=== PATIENT | female | born 1950 | race Caucasian/White ===

== ENCOUNTER → 2024-01-10 | Outpatient (CLI) | payer MEDICARE, OTHER ==
[~2024-01-10] MED LIST: ASCO500 PO; ATOR10 PO; Budeprion Sr150 MG PO; IRBHYD150 PO; MINIVELLE1 EAC1 TD; TOLT4 PO; VITAMIN D32000 UNIT PO
== END ==
LOC: LAB 16:56 → LAB SHORT 16:56
DX: R30.0 Dysuria (principal)
CPT/HCPCS: 87077; 87086; 87186